=== PATIENT | female | born 1985 | race Two or more races ===

== ENCOUNTER 2020-07-01 01:22 | Emergency (ER) | payer MEDICAID ==
[~2020-07-01] VITALS: Ht 157.5 cm; Wt 67.0 kg
[2020-07-01] MEDS ORDERED: ASPIRIN 81MG TABLET PO ONE (02:15)
[2020-07-01 03:33] LABS: BASOPHILS % 0.8 % (0.0-2.0); EOSINOPHILS % 1.7 % (0.0-5.0); HEMATOCRIT. 26.3 % (36.0-48.0); HEMOGLOBIN. 7.9 g/dL (12.0-16.0); LYMPHOCYTES % 28.1 % (20.0-50.0); MEAN CORPUSCULAR HEMOGLOBIN 17.6 pg (28.0-32.0); MEAN CORPUSCULAR VOLUME 58.5 fL (81.0-99.0); MEAN PLATELET VOLUME 8.9 fl (7.4-10.4); MONOCYTES % 7.1 % (2.0-8.0); NEUTROPHILS % 62.3 % (40.0-76.0); PLATELET 223 x1000/uL (130-400); RED BLOOD CELL COUNT 4.49 mill/uL (4.2-5.4); RED CELL DISTRIBUTION WIDTH 20.5 % (11.6-14.6)
[2020-07-01 03:43] LABS: CHLORIDE 111 mEq/L (98-107)
[2020-07-01 04:45] VITALS: BP 107/68
[2020-07-01 04:57] LABS: PLATELET ESTIMATE NORMAL
[2020-07-03] MEDS ORDERED: FERR236T3 MT (10:27)
== END 2020-07-01 05:00 | disposition home or self-care (01) ==
LOC: EDBD → ER 01:22
DX: R07.89 Other chest pain (principal); R03.0 Elevated blood-pressure reading, without diagnosis of hypertension
CPT/HCPCS: 36415; 71045; 80053; 80061; 81025; 83880; 84484; 85025; 93005; 99285; Z7610

== ENCOUNTER 2020-07-01 14:13 | Inpatient (IN) | payer MEDICAID, OTHER ==
[~2020-07-01] VITALS: Ht 160 cm; Wt 65.5 kg
[2020-07-01] MEDS ORDERED: MORPHINE SULFATE 4 MG/ML CPJ (NOT FOR IM USE) IV STA (14:48)
[2020-07-01] MEDS ORDERED: SODIUM CHLORIDE 0.9% 1,000 ML IV ONE (14:48)
[2020-07-01 15:35] LABS: BASOPHILS % 0.6 % (0.0-2.0); EOSINOPHILS % 0.6 % (0.0-5.0); HEMATOCRIT. 29.2 % (36.0-48.0); HEMOGLOBIN. 8.5 g/dL (12.0-16.0); MEAN CORPUSCULAR VOLUME 58.6 fL (81.0-99.0); MEAN PLATELET VOLUME 9.1 fl (7.4-10.4); NEUTROPHILS % 70.8 % (40.0-76.0); PLATELET 243 x1000/uL (130-400); RED BLOOD CELL COUNT 4.99 mill/uL (4.2-5.4); RED CELL DISTRIBUTION WIDTH 21.1 % (11.6-14.6)
[2020-07-01 15:47] LABS: CHLORIDE 112 mEq/L (98-107)
[2020-07-01 16:11] LABS: HCG SCREEN NEGATIVE
[2020-07-01] MEDS ORDERED: IOHEXOL-350 100 ML BOTTLE ONE (17:41)
[2020-07-01 20:05] VITALS: BP 104/42
[2020-07-01] MEDS ORDERED: POTASSIUM CHLORIDE 20MEQ TABLET SR PO SCH (23:00)
[2020-07-01] MEDS ORDERED: ONDANSETRON HCL 4MG/2ML INJ IV PRN (23:00)
[2020-07-01] MEDS: MORPHINE SULFATE 2 MG/ML CPJ (NOT FOR IM USE) IV PRN (23:27)
[2020-07-02] VITALS (7 sets, daily range): BP systolic 94–135; BP diastolic 53–72
[2020-07-02] MEDS: MORPHINE SULFATE 2 MG/ML CPJ (NOT FOR IM USE) IV PRN ×2 (08:09→12:47)
[2020-07-02 08:44] LABS: BASOPHILS % 0.8 % (0.0-2.0); EOSINOPHILS % 1.1 % (0.0-5.0); HEMATOCRIT. 27.8 % (36.0-48.0); HEMOGLOBIN. 8.2 g/dL (12.0-16.0); LYMPHOCYTES % 28.4 % (20.0-50.0); MEAN CORPUSCULAR HEMOGLOBIN 17.3 pg (28.0-32.0); MEAN CORPUSCULAR VOLUME 58.5 fL (81.0-99.0); MEAN PLATELET VOLUME 8.9 fl (7.4-10.4); MONOCYTES % 7.4 % (2.0-8.0); NEUTROPHILS % 62.3 % (40.0-76.0); PLATELET 225 x1000/uL (130-400); RED BLOOD CELL COUNT 4.76 mill/uL (4.2-5.4); RED CELL DISTRIBUTION WIDTH 20.8 % (11.6-14.6)
[2020-07-02] MEDS: ENOXAPARIN 40MG/0.4ML SYR SUBCUT SCH (09:09)
[2020-07-02] MEDS ORDERED: KETOROLAC 30MG/ML VIAL IV PRN (13:15)
[2020-07-02 13:21] LABS: CHLORIDE 112 mEq/L (98-107)
[2020-07-02 13:47] LABS: PHOSPHORUS 3.1 mg/dL (2.5-4.9)
[2020-07-02 21:14] LABS: TOTAL IRON BINDING CAPACITY 471 ug/dL (250-450)
[2020-07-03] VITALS: BP 90/50
[2020-07-03] MEDS: ACETAMINOPHEN 325MG TABLET PO PRN (00:24)
[2020-07-03 04:00] VITALS: BP 90/52
[2020-07-03 08:00] VITALS: BP 91/56
[2020-07-03] MEDS: MORPHINE SULFATE 2 MG/ML CPJ (NOT FOR IM USE) IV PRN ×2 (10:00→16:56)
[2020-07-03] MEDS: ENOXAPARIN 40MG/0.4ML SYR SUBCUT SCH (10:01)
[2020-07-03] MEDS ORDERED: FERR236T3 MT (10:27)
[2020-07-03 16:00] VITALS: BP 126/68
[2020-07-03] MEDS ORDERED: IOHEXOL-350 100 ML BOTTLE ONE ×2 (19:11→23:22)
[2020-07-03 20:00] VITALS: BP 96/55
[2020-07-03 21:20] LABS: FOLIC ACID (FOLATE) SERUM 18.5 ng/mL (>5.38)
[2020-07-03 23:45] LABS: CLARITY URINE TURBID (CLEAR); KETONES URINE 2+ (NEGATIVE); LEUKOCYTE ESTERASE URINE 3+ (NEGATIVE); NITRITE URINE POSITIVE (NEGATIVE); OCCULT BLOOD URINE 3+ (NEGATIVE); PROTEIN URINE 3+ (NEGATIVE); SPECIFIC GRAVITY URINE 1.022 (1.005-1.030)
[2020-07-03 23:50] LABS: COLOR URINE BLOODY (YELLOW)
[2020-07-04] VITALS: BP 97/56
[2020-07-04 00:32] LABS: *AMPHETAMINES SCREEN URINE NEGATIVE (NEGATIVE); *BARBITURATES SCREEN URINE NEGATIVE (NEGATIVE); *BENZODIAZEPINES SCREEN URINE NEGATIVE (NEGATIVE); *COCAINE SCREEN URINE NEGATIVE (NEGATIVE); METHADONE URINE SCREEN NEGATIVE (NEGATIVE)
[2020-07-04 00:33] LABS: CANNABINOID URINE SCREEN NEGATIVE (NEGATIVE); PHENCYCLIDINE URINE SCREEN NEGATIVE (NEGATIVE)
[2020-07-04 00:37] LABS: OPIATES URINE SCREEN PRESUMTIVE POSITIVE (NEGATIVE)
[2020-07-04] MEDS: ACETAMINOPHEN 325MG TABLET PO PRN (00:51)
[2020-07-04 04:00] VITALS: BP 96/58
[2020-07-04 06:06] LABS: BASOPHILS % 0.5 % (0.0-2.0); EOSINOPHILS % 2.1 % (0.0-5.0); HEMATOCRIT. 27.5 % (36.0-48.0); HEMOGLOBIN. 8.2 g/dL (12.0-16.0); LYMPHOCYTES % 34.5 % (20.0-50.0); MEAN CORPUSCULAR HEMOGLOBIN 17.4 pg (28.0-32.0); MEAN CORPUSCULAR VOLUME 58.4 fL (81.0-99.0); MEAN PLATELET VOLUME 8.6 fl (7.4-10.4); MONOCYTES % 7.1 % (2.0-8.0); NEUTROPHILS % 55.8 % (40.0-76.0); PLATELET 257 x1000/uL (130-400); RED BLOOD CELL COUNT 4.71 mill/uL (4.2-5.4); RED CELL DISTRIBUTION WIDTH 20.4 % (11.6-14.6)
[2020-07-04 06:21] LABS: CHLORIDE 108 mEq/L (98-107)
[2020-07-04 06:27] LABS: C REACTIVE PROTEIN QUANT 3.1 mg/L (0.0-3.0)
[2020-07-04 08:00] VITALS: BP 100/52
[2020-07-04 12:00] VITALS: BP 115/61
[2020-07-04 13:28] VITALS: BP 115/61
== END 2020-07-04 16:15 | disposition home or self-care (01) | DRG 243 ==
LOC: ER 14:22 → 5WST 19:08 → EDBEDREQTM 19:11 → EDBEDREQ 19:11 → EDBEDREQSVC 19:11 → EDBEDREQ 19:27 → ENRESERV 19:39
PROVIDERS: ADMIT Family Medicine; ATTEND Family Medicine
DX: K21.9 Gastro-esophageal reflux disease without esophagitis (principal); D64.9 Anemia, unspecified; G89.29 Other chronic pain; M54.2 Cervicalgia; Z79.899 Other long term (current) drug therapy; E87.8 Other disorders of electrolyte and fluid balance, not elsewhere classified
CPT/HCPCS: 36415; 71275; 72141; 80053; 80305; 81003; 82553; 82607; 82746; 83540; 83550; 83735; 84100; 84484; 84703; 85025; 85379; 85651; 86140; 93005; 93306; 93970; 99285; J1650; J1885; J2270; J7030; Q9967

== ENCOUNTER 2020-08-07 22:19 | Inpatient (IN) | payer MEDICAID ==
[~2020-08-07] VITALS: Ht 160 cm; Wt 82.6 kg
[~2020-08-07 22:19] MED LIST: FERR236T3 MT
[2020-08-08] MEDS ORDERED: LORAZEPAM 1MG TABLET PO ONE (00:30)
[2020-08-08 00:43] LABS: BASOPHILS % 0.7 % (0.0-2.0); EOSINOPHILS % 0.7 % (0.0-5.0); HEMATOCRIT. 26.5 % (36.0-48.0); HEMOGLOBIN. 7.9 g/dL (12.0-16.0); LYMPHOCYTES % 21.7 % (20.0-50.0); MEAN CORPUSCULAR HEMOGLOBIN 17.4 pg (28.0-32.0); MEAN CORPUSCULAR VOLUME 58.7 fL (81.0-99.0); MEAN PLATELET VOLUME 8.6 fl (7.4-10.4); MONOCYTES % 5.6 % (2.0-8.0); NEUTROPHILS % 71.3 % (40.0-76.0); PLATELET 299 x1000/uL (130-400); RED BLOOD CELL COUNT 4.51 mill/uL (4.2-5.4); RED CELL DISTRIBUTION WIDTH 20.8 % (11.6-14.6)
[2020-08-08 00:45] LABS: CHLORIDE 111 mEq/L (98-107)
[2020-08-08] MEDS ORDERED: POTASSIUM CHLORIDE 20MEQ TABLET SR PO ONE (01:15)
[2020-08-08] MEDS ORDERED: ASPIRIN 81MG TABLET PO ONE (01:15)
[2020-08-08] MEDS ORDERED: TRAZODONE HCL 50MG TABLET PO PRN (01:45)
[2020-08-08] MEDS ORDERED: NITROGLYCERIN 0.4MG TABLET SL SL PRN (01:45)
[2020-08-08] MEDS ORDERED: LORAZEPAM 0.5MG TABLET PO PRN (01:45)
[2020-08-08] MEDS ORDERED: ONDANSETRON HCL 4MG/2ML INJ IV PRN (01:45)
[2020-08-08] MEDS ORDERED: ONDANSETRON HCL 4MG/2ML INJ IV STA (01:55)
[2020-08-08] MEDS ORDERED: MORPHINE SULFATE 4 MG/ML CPJ (NOT FOR IM USE) IV STA (01:55)
[2020-08-08 02:30] LABS: TOTAL IRON BINDING CAPACITY 463 ug/dL (250-450)
[2020-08-08] MEDS ORDERED: POTASSIUM CHLORIDE 20MEQ TABLET SR PO NR (02:30)
[2020-08-08 02:57] LABS: VITAMIN B12 SERUM 408 pg/mL (211-911)
[2020-08-08 04:51] LABS: *AMPHETAMINES SCREEN URINE NEGATIVE (NEGATIVE); *BARBITURATES SCREEN URINE NEGATIVE (NEGATIVE); *BENZODIAZEPINES SCREEN URINE NEGATIVE (NEGATIVE); *COCAINE SCREEN URINE NEGATIVE (NEGATIVE); METHADONE URINE SCREEN NEGATIVE (NEGATIVE); OPIATES URINE SCREEN NEGATIVE (NEGATIVE)
[2020-08-08 04:52] LABS: CANNABINOID URINE SCREEN NEGATIVE (NEGATIVE); PHENCYCLIDINE URINE SCREEN NEGATIVE (NEGATIVE)
[2020-08-08 05:06] LABS: FERRITIN < 5 ng/mL (10-291)
[2020-08-08 05:30] VITALS: BP 94/49
[2020-08-08] MEDS: ACETAMINOPHEN 325MG TABLET PO PRN ×3 (06:01→19:46)
[2020-08-08 06:53] LABS: PLATELET ESTIMATE NORMAL
[2020-08-08 08:00] VITALS: BP 90/40
[2020-08-08] MEDS: HEPARIN 5000 UNITS/ML VIAL SUBCUT SCH ×2 (08:42→22:10)
[2020-08-08 11:48] VITALS: BP 105/72
[2020-08-08] MEDS: SODIUM CHLORIDE 0.9% 1,000 ML IV SCH (11:54)
[2020-08-08] MEDS ORDERED: FERROUS SULFATE 325MG TABLET PO SCH (12:40)
[2020-08-08 15:37] LABS: BASOPHILS % 0.7 % (0.0-2.0); EOSINOPHILS % 0.9 % (0.0-5.0); HEMATOCRIT. 25.7 % (36.0-48.0); HEMOGLOBIN. 7.6 g/dL (12.0-16.0); MEAN CORPUSCULAR HEMOGLOBIN 17.5 pg (28.0-32.0); MEAN CORPUSCULAR VOLUME 59.1 fL (81.0-99.0); MEAN PLATELET VOLUME 8.6 fl (7.4-10.4); MONOCYTES % 6.8 % (2.0-8.0); NEUTROPHILS % 55.6 % (40.0-76.0); PLATELET 261 x1000/uL (130-400); RED BLOOD CELL COUNT 4.35 mill/uL (4.2-5.4); RED CELL DISTRIBUTION WIDTH 20.6 % (11.6-14.6)
[2020-08-08 15:51] LABS: CHLORIDE 109 mEq/L (98-107)
[2020-08-08 16:00] VITALS: BP 106/64
[2020-08-08] MEDS: IRON SUCROSE COMPLEX 100 MG/5 ML ML IV SCH (17:34)
[2020-08-08 20:00] VITALS: BP 98/51
[2020-08-09] VITALS (10 sets, daily range): BP systolic 91–114; BP diastolic 44–68
[2020-08-09] MEDS: SODIUM CHLORIDE 0.9% 1,000 ML IV SCH ×2 (03:44→17:36)
[2020-08-09 06:14] LABS: CHLORIDE 113 mEq/L (98-107)
[2020-08-09 06:20] LABS: BASOPHILS % 0.9 % (0.0-2.0); EOSINOPHILS % 1.8 % (0.0-5.0); HEMATOCRIT. 24.6 % (36.0-48.0); HEMOGLOBIN. 7.3 g/dL (12.0-16.0); LYMPHOCYTES % 37.6 % (20.0-50.0); MEAN CORPUSCULAR HEMOGLOBIN 17.7 pg (28.0-32.0); MEAN CORPUSCULAR VOLUME 59.5 fL (81.0-99.0); MEAN PLATELET VOLUME 8.8 fl (7.4-10.4); MONOCYTES % 8.6 % (2.0-8.0); NEUTROPHILS % 51.1 % (40.0-76.0); PLATELET 246 x1000/uL (130-400); RED BLOOD CELL COUNT 4.13 mill/uL (4.2-5.4); RED CELL DISTRIBUTION WIDTH 20.5 % (11.6-14.6)
[2020-08-09 06:21] LABS: LDL CHOLESTEROL 68 mg/dL (5-100)
[2020-08-09 06:22] LABS: HDL CHOLESTEROL 33 mg/dL (40-59)
[2020-08-09] MEDS: IRON SUCROSE COMPLEX 100 MG/5 ML ML IV SCH (09:00)
[2020-08-09] MEDS: HEPARIN 5000 UNITS/ML VIAL SUBCUT SCH (09:33)
[2020-08-09] MEDS ORDERED: FERR325T23 PO (11:09)
[2020-08-09] MEDS ORDERED: POTASSIUM CHLORIDE 20MEQ TABLET SR PO SCH (11:15)
[2020-08-09] MEDS ORDERED: TRAMADOL 50MG TABLET PO PRN (13:00)
[2020-08-09] MEDS: ACETAMINOPHEN 325MG TABLET PO PRN (20:07)
[2020-08-09 21:29] LABS: HEMATOCRIT 30.8 % (36.0-48.0); HEMOGLOBIN 9.5 g/dL (12.0-16.0); MEAN CORPUSCULAR HEMOGLOBIN 19.6 pg (28.0-32.0); MEAN CORPUSCULAR VOLUME 63.5 fL (81.0-99.0); PLATELET 263 x1000/uL (130-400); RED BLOOD CELL COUNT 4.86 mill/uL (4.2-5.4); RED CELL DISTRIBUTION WIDTH 25.4 % (11.6-14.6)
== END 2020-08-09 22:25 | disposition home or self-care (01) | DRG 532 ==
LOC: ER 22:19 → 8WST 08-08 01:11 → EDBEDREQTM 08-08 01:16 → EDBEDREQ 08-08 01:16 → ENRESERV 08-08 04:52
PROVIDERS: ADMIT Internal Medicine; ATTEND Internal Medicine
PROC: 30233N1 Transfusion of Nonautologous Red Blood Cells into Peripheral Vein, Percutaneous Approach (ICD-10-PCS; principal; 2020-08-09)
DX: D25.9 Leiomyoma of uterus, unspecified (principal); I95.9 Hypotension, unspecified; R07.9 Chest pain, unspecified; D50.8 Other iron deficiency anemias; N92.0 Excessive and frequent menstruation with regular cycle; E87.6 Hypokalemia; F41.9 Anxiety disorder, unspecified; E66.9 Obesity, unspecified; Z71.3 Dietary counseling and surveillance; Z68.32 Body mass index [BMI] 32.0-32.9, adult
CPT/HCPCS: 36415; 71045; 76830; 76856; 80048; 80053; 80061; 80305; 82607; 82728; 82746; 83036; 83540; 83550; 83735; 84484; 85025; 85027; 85044; 86850; 86900; 86920; 93005; 93306; 96374; 97162; 99285; J1644; J7030; P9016

== ENCOUNTER 2020-08-26 12:37 | Emergency (ER) | payer MEDICAID ==
[~2020-08-26] VITALS: Ht 160 cm; Wt 64.0 kg
[~2020-08-26 12:37] MED LIST changes: -FERR236T3 MT; +FERR325T23 PO
[2020-08-26] MEDS ORDERED: KETOROLAC 60MG/2ML VIAL IM STA (13:51)
[2020-08-26 14:30] LABS: CLARITY URINE CLEAR (CLEAR); COLOR URINE YELLOW (YELLOW); KETONES URINE NEGATIVE (NEGATIVE); LEUKOCYTE ESTERASE URINE TRACE (NEGATIVE); NITRITE URINE NEGATIVE (NEGATIVE); OCCULT BLOOD URINE 1+ (NEGATIVE); PROTEIN URINE NEGATIVE (NEGATIVE); SPECIFIC GRAVITY URINE 1.006 (1.005-1.030); UROBILINOGEN URINE 0.2 E.U./dL (0.2-1.0)
[2020-08-26 14:50] LABS: PROTHROMBIN TIME 10.8 sec (9.6-11.0)
[2020-08-26 14:51] LABS: BASOPHILS % 0.4 % (0.0-2.0); HEMATOCRIT. 36.4 % (36.0-48.0); HEMOGLOBIN. 11.6 g/dL (12.0-16.0); LYMPHOCYTES % 10.7 % (20.0-50.0); MEAN CORPUSCULAR HEMOGLOBIN 22.2 pg (28.0-32.0); MEAN CORPUSCULAR VOLUME 69.3 fL (81.0-99.0); MEAN PLATELET VOLUME 9.2 fl (7.4-10.4); MONOCYTES % 6.2 % (2.0-8.0); NEUTROPHILS % 81.7 % (40.0-76.0); PLATELET 240 x1000/uL (130-400); RED BLOOD CELL COUNT 5.25 mill/uL (4.2-5.4); RED CELL DISTRIBUTION WIDTH 33.4 % (11.6-14.6)
[2020-08-26 14:54] LABS: CHLORIDE 107 mEq/L (98-107)
[2020-08-26 15:01] LABS: HCG SCREEN NEGATIVE
[2020-08-26 16:22] VITALS: BP 112/75
[2020-08-26 16:37] LABS: PLATELET ESTIMATE NORMAL
== END 2020-08-26 16:23 | disposition home or self-care (01) ==
LOC: ER 12:37
DX: R10.30 Lower abdominal pain, unspecified (principal)
CPT/HCPCS: 36415; 76830; 76856; 80053; 81003; 81025; 83690; 84703; 85025; 85610; 93005; 96372; 99284; J1885

== ENCOUNTER 2021-02-02 13:05 | Inpatient (IN) | payer MEDICAID ==
[~2021-02-02] VITALS: Ht 160 cm; Wt 67.6 kg
[2021-02-02] MEDS ORDERED: ASPIRIN 325MG EC TABLET PO ONE (14:15)
[2021-02-02 14:21] LABS: BASOPHILS % 0.4 % (0.0-2.0); EOSINOPHILS % 0.8 % (0.0-5.0); HEMATOCRIT. 32.1 % (36.0-48.0); LYMPHOCYTES % 25.6 % (20.0-50.0); MEAN CORPUSCULAR HEMOGLOBIN 22.2 pg (28.0-32.0); MEAN CORPUSCULAR VOLUME 71.4 fL (81.0-99.0); MEAN PLATELET VOLUME 8.6 fl (7.4-10.4); MONOCYTES % 7.1 % (2.0-8.0); NEUTROPHILS % 66.1 % (40.0-76.0); PLATELET 172 x1000/uL (130-400); RED BLOOD CELL COUNT 4.49 mill/uL (4.2-5.4); RED CELL DISTRIBUTION WIDTH 16.4 % (11.6-14.6)
[2021-02-02 14:26] LABS: CHLORIDE 111 mEq/L (98-107)
[2021-02-02 14:32] LABS: HCG SCREEN NEGATIVE
[2021-02-02] MEDS ORDERED: CALCIUM CARBONATE 500MG TABLET CHEW PO SCH (16:45)
[2021-02-02] MEDS ORDERED: CLONIDINE 0.1MG TABLET PO PRN (16:45)
[2021-02-02] MEDS ORDERED: ONDANSETRON HCL 4MG/2ML INJ IV PRN (16:45)
[2021-02-02] MEDS ORDERED: IPRATROPIUM/ALBUTEROL 0.5-3(2.5)MG/3ML NEB HHN PRN (16:45)
[2021-02-02] MEDS ORDERED: ACETAMINOPHEN 325MG TABLET PO PRN (16:45)
[2021-02-02] MEDS ORDERED: DOCUSATE SODIUM 100MG CAPSULE PO PRN (16:45)
[2021-02-02] MEDS ORDERED: LORAZEPAM 0.5MG TABLET PO PRN (16:45)
[2021-02-02] MEDS ORDERED: HYDROCODONE/ACETAMINOPHEN 5/325MG TABLET PO PRN (16:45)
[2021-02-02] MEDS ORDERED: POTASSIUM CHLORIDE 20MEQ TABLET SR PO NR (16:45)
[2021-02-02 17:17] LABS: *AMPHETAMINES SCREEN URINE NEGATIVE (NEGATIVE); *BARBITURATES SCREEN URINE NEGATIVE (NEGATIVE); *BENZODIAZEPINES SCREEN URINE NEGATIVE (NEGATIVE); *COCAINE SCREEN URINE NEGATIVE (NEGATIVE); METHADONE URINE SCREEN NEGATIVE (NEGATIVE); OPIATES URINE SCREEN NEGATIVE (NEGATIVE)
[2021-02-02 17:18] LABS: CANNABINOID URINE SCREEN NEGATIVE (NEGATIVE); PHENCYCLIDINE URINE SCREEN NEGATIVE (NEGATIVE)
[2021-02-02] MEDS: FAMOTIDINE 20MG TABLET PO SCH (18:03)
[2021-02-02 21:10] VITALS: BP 112/64
[2021-02-03] VITALS: BP 97/60
[2021-02-03 04:00] VITALS: BP 90/50
[2021-02-03 08:00] VITALS: BP 94/54
[2021-02-03] MEDS: FAMOTIDINE 20MG TABLET PO SCH (09:25)
[2021-02-03] MEDS: ASPIRIN 81MG EC TABLET PO SCH (09:25)
[2021-02-03] MEDS ORDERED: INFLUENZA VACCINE 05/PF 0.5 ML VIAL IM ONE (14:00)
[2021-02-03] MEDS ORDERED: PNEUMOCOCCAL 23-VAL P-SAC VAC 0.5 ML IM ONE (14:00)
[2021-02-03 16:00] VITALS: BP 96/56
[2021-02-03 20:00] VITALS: BP 101/58
[2021-02-04] VITALS: BP 100/77
[2021-02-04 04:00] VITALS: BP 88/50
[2021-02-04 08:00] VITALS: BP 99/58
[2021-02-04] MEDS: ASPIRIN 81MG EC TABLET PO SCH (08:05)
[2021-02-04] MEDS: ACETAMINOPHEN 325MG TABLET PO PRN ×2 (08:05→22:40)
[2021-02-04] MEDS: FAMOTIDINE 20MG TABLET PO SCH (08:06)
[2021-02-04 12:00] VITALS: BP 93/52
[2021-02-04] MEDS: IRON SUCROSE COMPLEX 100 MG/5 ML ML IV SCH (12:58)
[2021-02-04 16:00] VITALS: BP 110/57
[2021-02-04] MEDS ORDERED: REGADENOSON 0.4 MG/5 ML IV NR (18:45)
[2021-02-04 20:00] VITALS: BP 99/56
[2021-02-05] VITALS: BP 100/60
[2021-02-05 04:00] VITALS: BP 98/52
[2021-02-05 06:13] LABS: CHLORIDE 106 mEq/L (98-107)
[2021-02-05 06:14] LABS: BASOPHILS % 0.5 % (0.0-2.0); EOSINOPHILS % 0.4 % (0.0-5.0); HEMATOCRIT. 34.4 % (36.0-48.0); HEMOGLOBIN. 11.1 g/dL (12.0-16.0); LYMPHOCYTES % 8.2 % (20.0-50.0); MEAN CORPUSCULAR HEMOGLOBIN 22.6 pg (28.0-32.0); MEAN CORPUSCULAR VOLUME 70.1 fL (81.0-99.0); MEAN PLATELET VOLUME 8.8 fl (7.4-10.4); MONOCYTES % 5.9 % (2.0-8.0); PLATELET 181 x1000/uL (130-400); RED BLOOD CELL COUNT 4.91 mill/uL (4.2-5.4); RED CELL DISTRIBUTION WIDTH 16.4 % (11.6-14.6)
[2021-02-05 06:28] LABS: PHOSPHORUS 3.8 mg/dL (2.5-4.9)
[2021-02-05 08:00] VITALS: BP 104/72
[2021-02-05] MEDS ORDERED: POTASSIUM CHLORIDE 20MEQ TABLET SR PO SCH (08:30)
[2021-02-05] MEDS: IRON SUCROSE COMPLEX 100 MG/5 ML ML IV SCH (09:00)
[2021-02-05] MEDS ORDERED: REGADENOSON 0.4 MG/5 ML IV ONE (09:51)
[2021-02-05 12:00] VITALS: BP 103/64
[2021-02-05] MEDS: FAMOTIDINE 20MG TABLET PO SCH (12:39)
[2021-02-05] MEDS: ASPIRIN 81MG EC TABLET PO SCH (12:39)
[2021-02-05 15:13] VITALS: BP 116/64
== END 2021-02-05 17:10 | disposition home or self-care (01) | DRG 203 ==
LOC: ER 13:05 → 8WST 16:07 → ENRESERV 20:29
PROVIDERS: ADMIT Internal Medicine; ATTEND Internal Medicine
DX: M94.0 Chondrocostal junction syndrome [Tietze] (principal); D50.9 Iron deficiency anemia, unspecified; E87.6 Hypokalemia; F41.9 Anxiety disorder, unspecified; R00.0 Tachycardia, unspecified; Z20.822 Contact with and (suspected) exposure to COVID-19; Z90.49 Acquired absence of other specified parts of digestive tract; Z79.899 Other long term (current) drug therapy
CPT/HCPCS: 36415; 71045; 78452; 80053; 80061; 80305; 82728; 83036; 83540; 83550; 83735; 83880; 84100; 84443; 84484; 84703; 85025; 85379; 87426; 90686; 90732; 93005; 93017; 93306; 99285; A9500; J2785